=== PATIENT | female | born 1970 ===

== ENCOUNTER 2018-07-03 07:56 | Day surgery (SDC) | payer SELFPAY ==
[~2018-07-03 07:56] MED LIST: cefOXitin IV 1 gm in Dextrose 1 GM/50 ML BAG IVPB ONE
[2018-07-03] MEDS ORDERED: Midazolam 2 MG/2 ML VIAL ONE (10:09)
[2018-07-03] MEDS ORDERED: Propofol 10 mg/ml Inj (20 ML) ONE (10:09)
[2018-07-03] MEDS ORDERED: HYDROmorphone 0.5 mg/0.5 ml ISec IVP PRN (10:49)
[2018-07-03 12:18] VITALS: BP 115/66; PULSE 73; RESP 18; TEMP 97.7; O2SAT 100
--- NOTE | 2018-07-26 07:06 | OP ---
PROCEDURE DATE: 07/03/2018 PREOPERATIVE DIAGNOSES: Menorrhagia, irregular menstrual period, endometrial polyp. POSTOPERATIVE DIAGNOSES: Menorrhagia, irregular menstrual period, endometrial polyp. PROCEDURE: Hysteroscopy and MyoSure, dilation and curettage. SURGEON: Aster Rush MD TYPE OF ANESTHESIA: General LMA. FINDINGS: Anteverted uterus approximately 8 to 10 weeks' gestation. COMPLICATIONS: None. ESTIMATED BLOOD LOSS: Approximately 5 mL. IN'S AND OUT'S: 100 mL. SPECIMENS: EMC, ECC, and polyp. DESCRIPTION OF PROCEDURE: The patient was informed of the risks, benefits, and alternatives of the procedure. Risks factors included infection, bleeding, damage to the surrounding organs and tissues, complication from anesthesia and possible . After informed consent was obtained, she was then taken to the operating room, prepped and draped in normal sterile fashion, placed in a dorsal lithotomy position. A weighted speculum was placed into the vagina. The anterior lip of the cervix was grasped with a single-tooth tenaculum. The uterus was gently dilated to approximately 8 cm. Upon complete uterine dilation, the scope was then draped. A complete surveillance of the uterine cavity was then performed. In that particular instance, MyoSure device was then identified. Under direct visualization, it was then removed and submitted to Pathology and then the scope was then removed and a fractional D and C was then performed and submitted to pathology. EMC and ECC and hysteroscopy was then maintained making sure there was no areas of perforation. Upon completion, all instruments were removed from the vagina. Instrument and lap counts were correct x2. The patient was then taken to the recovery room in stable condition. Instructed to follow up in the office in approximately two weeks. Aster Rush MD
== END 2018-07-03 12:15 | disposition home or self-care (01) ==
LOC: C.SDS 07:56
PROVIDERS: ATTEND Obstetrics & Gynecology
DX: N84.0 Polyp of corpus uteri (principal)
CPT/HCPCS: 58558; 88305; J0694; J1885; J2250; J2405; J2704; J3010